=== PATIENT | male | born 2000 | race Caucasian/White ===

== ENCOUNTER 2021-01-12 09:01 | Emergency (ER) | payer OTHER ==
[~2021-01-12 09:01] MED LIST: PHENERGAN25 M1 PO
[2021-01-12 10:37] LABS: BASOPHIL 0.4 % (0-2); EOSINOPHIL 0.1 % (0-5); HCT 49.1 % (42.0-52.0); HGB 18.1 g/dl (13.2-18.0); MCHC 36.9 g/dL (32.0-36.0); MCV 86.9 fL (78.0-100.0); MONOCYTE 9.5 % (0-12); MPV 9.1 fL (6.0-9.5); NEUTROPHIL 67.8 % (41-80); NRBC 0; PLT 289 K/uL (150-400); RBC 5.65 M/uL (4.70-6.00); RDW 12.1 % (11.5-14.0); WBC 8.3 K/uL (4.0-10.5)
[2021-01-12 10:54] LABS: ALBUMIN 4.4 g/dL (3.4-5.0); BILIRUBIN - TOTAL 1.8 mg/dL (0.2-1.0); BUN/CREAT RATIO (CALC) 18.2 RATIO; CREATININE 0.77 mg/dL (0.67-1.17); GLOBULIN (CALCULATION) 4.1 g/dL; POTASSIUM 3.4 mmol/L (3.5-5.1); TOTAL PROTEIN 8.5 g/dL (6.4-8.2)
[2021-01-12] MEDS ORDERED: ACIPHEX20 MG PO (12:05)
[2021-01-12] MEDS ORDERED: ZOFRAN4 M1 PO (12:05)
[2021-01-12] MEDS ORDERED: BENTYL10 MG PO (12:05)
[2021-01-12 12:28] LABS: BILIRUBIN NEGATIVE (NEGATIVE); BLOOD NEGATIVE Ery/uL (NEGATIVE); CLARITY CLEAR (CLEAR); COLOR YELLOW (YELLOW); GLUCOSE (U) NORMAL (NORMAL); LEUKOCYTES NEGATIVE Leu/uL (NEGATIVE); NITRITE NEGATIVE (NEGATIVE); PROTEIN 1+ mg/dL (NEGATIVE); SPECIFIC GRAVITY 1.015 (1.001-1.030); UROBILINOGEN 0.2 mg/dL (0.2-1.0); pH 8.5 (5.0-9.0)
[2021-01-12 12:36] LABS: AMORPHOUS PHOSPHATE CRYSTALS MODERATE
== END 2021-01-12 12:35 | disposition home or self-care (01) ==
LOC: FER 09:01
PROVIDERS: Emergency Medicine
DX: K29.70 Gastritis, unspecified, without bleeding (principal); I10 Essential (primary) hypertension; F17.290 Nicotine dependence, other tobacco product, uncomplicated
CPT/HCPCS: 36415; 80053; 81001; 82550; 83690; 84145; 85025; J1885; J2405; J7030; Q9967

== ENCOUNTER 2021-05-22 14:38 | Emergency (ER) | payer OTHER ==
[~2021-05-22 14:38] MED LIST changes: +ACIPHEX20 MG PO; +BENTYL10 MG PO; +ZOFRAN4 M1 PO
[2021-05-22 17:50] LABS: BASOPHIL 1.4 % (0-2); EOSINOPHIL 7.7 % (0-5); HCT 45.9 % (42.0-52.0); HGB 15.6 g/dl (13.2-18.0); LYMPHOCYTE 43.2 % (15-48); MCH 31.3 pg (25.0-31.0); MCV 92.2 fL (78.0-100.0); MONOCYTE 8.6 % (0-12); MPV 9.1 fL (6.0-9.5); NEUTROPHIL 38.9 % (41-80); NRBC 0; PLT 221 K/uL (150-400); RBC 4.98 M/uL (4.70-6.00)
[2021-05-22 18:01] LABS: BILIRUBIN NEGATIVE (NEGATIVE); BLOOD NEGATIVE Ery/uL (NEGATIVE); CLARITY CLEAR (CLEAR); COLOR YELLOW (YELLOW); GLUCOSE (U) NORMAL (NORMAL); LEUKOCYTES NEGATIVE Leu/uL (NEGATIVE); NITRITE NEGATIVE (NEGATIVE); PROTEIN NEGATIVE (NEGATIVE); SPECIFIC GRAVITY 1.015 (1.001-1.030); UROBILINOGEN 0.2 mg/dL (0.2-1.0)
[2021-05-22 18:06] LABS: AMPHETAMINES NEGATIVE (NEGATIVE); BARBITURATES NEGATIVE (NEGATIVE); ECSTASY (MDMA) NEGATIVE (NEGATIVE); MARIJUANA (THC) NEGATIVE (NEGATIVE); METHADONE NEGATIVE (NEGATIVE); OPIATES NEGATIVE (NEGATIVE); OXYCODONE NEGATIVE (NEGATIVE)
[2021-05-22 18:17] LABS: ALBUMIN 4.2 g/dL (3.4-5.0); BILIRUBIN - TOTAL 0.6 mg/dL (0.2-1.0); BUN/CREAT RATIO (CALC) 12.5 RATIO; CREATININE 0.88 mg/dL (0.67-1.17); GLOBULIN (CALCULATION) 3.3 g/dL; POTASSIUM 3.9 mmol/L (3.5-5.1); TOTAL PROTEIN 7.5 g/dL (6.4-8.2)
== END 2021-05-22 20:18 | disposition home or self-care (01) ==
LOC: FER 14:38
PROVIDERS: Nurse Practitioner Family
DX: F41.9 Anxiety disorder, unspecified (principal); F17.290 Nicotine dependence, other tobacco product, uncomplicated
CPT/HCPCS: 36415; 80053; 80305; 81003; 85025; 99284